=== PATIENT | male | born 1995 | race Caucasian/White ===

== ENCOUNTER 2018-06-18 08:48 | Emergency (ER) | payer BC ==
[2018-06-18 10:00] VITALS: BP 115/68
== END 2018-06-18 10:00 | disposition home or self-care (01) ==
LOC: ED 08:48
DX: L03.113 Cellulitis of right upper limb (principal)

== ENCOUNTER 2018-06-22 11:43 | Emergency (ER) | payer BC ==
[~2018-06-22] VITALS: Ht 185.4 cm; Wt 101.2 kg
[2018-06-22 11:49] VITALS: Ht 185.4 cm; Wt 101.2 kg
[2018-06-22 12:23] LABS: BASOPHIL % 0.5 % (0-2); PLATELET COUNT 233 x10^3mcL (130-400); RED CELL DISTRIBUTION WIDTH 11.7 % (11.5-14.5)
[2018-06-22 12:45] LABS: CALCIUM 9.3 mg/dL (8.5-10.1); CARBON DIOXIDE 26.9 mmol/L (21-32); CHLORIDE SERUM 102 mmol/L (98-107); GFR1 > 60 mL/min; GLUCOSE SERUM 124 mg/dL (74-106); POTASSIUM SERUM 4.5 mmol/L (3.5-5.1); SODIUM SERUM 137 mmol/L (136-145)
[2018-06-22 13:29] VITALS: BP 123/85
== END 2018-06-22 13:29 | disposition home or self-care (01) ==
LOC: ED 11:43
PROVIDERS: Emergency Medicine
PROC: 0H9DXZZ Drainage of Right Lower Arm Skin, External Approach (ICD-10-PCS; principal; 2018-06-22)
DX: L02.413 Cutaneous abscess of right upper limb (principal)
CPT/HCPCS: 36415; J2001

== ENCOUNTER 2018-06-24 14:44 | Emergency (ER) | payer BC ==
[~2018-06-24] VITALS: Ht 185.4 cm; Wt 101.2 kg
[2018-06-24 15:02] VITALS: Ht 185.4 cm; Wt 101.2 kg
[2018-06-24 16:41] VITALS: BP 111/80
== END 2018-06-24 16:41 | disposition home or self-care (01) ==
LOC: ED 14:44
DX: L02.413 Cutaneous abscess of right upper limb (principal); Z98.890 Other specified postprocedural states

== ENCOUNTER 2018-06-27 12:03 | Emergency (ER) | payer BC ==
[~2018-06-27] VITALS: Ht 185.4 cm; Wt 98.9 kg
[2018-06-27 12:11] VITALS: BP 120/66; Ht 185.4 cm; Wt 98.9 kg
== END 2018-06-27 13:39 | disposition home or self-care (01) ==
LOC: ED 12:03
DX: S80.01XA Contusion of right knee, initial encounter (principal); V87.8XXA Person injured in other specified noncollision transport accidents involving motor vehicle (traffic), initial encounter; Y93.55 Activity, bike riding; Y92.413 State road as the place of occurrence of the external cause; Y99.8 Other external cause status
CPT/HCPCS: J1885